=== PATIENT | male | born 1950 | race Caucasian/White ===

== ENCOUNTER 2021-04-23 09:29 | Day surgery (SDC) | payer MEDICARE, OTHER ==
[~2021-04-23 09:29] MED LIST: Albuterol 0.083% 2.5 MG/3 ML Neb Soln NEB SCH; Bupivacaine 0.5% 30 ML SDV ONE; Lidocaine 1% 30 ML SDV ONE; Lidocaine 1%/Sod Bicarbonate in NS 8.4% 1 ML Syringe IDERM PRN; Sodium Chloride 0.9% 10 ML Syringe FLUSH PRN
[2021-04-23] MEDS: Lactated Ringers 1,000 ML IV SCH ×2 (09:45→11:14)
[2021-04-23] MEDS ORDERED: ceFAZolin 2 GM in Premix Bag 1 BAG IV ONE (10:15)
[2021-04-23] MEDS ORDERED: Lidocaine 1% with EPINEPHrine 1:100,000 10 ML MDV ONE ×2 (10:27→10:35)
[2021-04-23] MEDS ORDERED: Bupivacaine 0.5% 30 ML SDV ONE (10:28)
--- NOTE | 2021-04-23 10:28 | PCM.PREANE ---
Preanesthetic Assessment - Procedure Proposed Procedure: Open Right Inguinal Hernia Repair with Mesh - Anesthesia/Transfusion/Family Hx Anesthesia History: No Prior Anesthesia Family History of Anesthesia Reaction: No Transfusion History: No Prior Transfusion(s) Intubation History: Unknown - Review of Systems General: No Symptoms Pulmonary: No Symptoms (COPD: smokes 1/2-3/4 ppd times 40 years./history of pulmonary nodules/orthopnea), Wheezing, Cough, Sputum (faint yellow) Cardiovascular: No Symptoms (never used nitroglycerin), Dyspnea on Exertion (walking one block) Gastrointestinal: No Symptoms (GERD: gall bladder disease.) Neurological: No Symptoms, Tingling (bilateral feet) Other: Reports: Easy Bruising, Sinus Problem (seasonal allergies), Neck Pain (history of neck masss), Anxiety (Per patient "enormous amount") - Physical Assessment NPO Status Date: 04/22/21 NPO Status Time: 20:00 Vital Signs: Last Vital Signs Temp 36.6 C 04/23/21 09:30 Pulse 128 H 04/23/21 09:30 Resp 16 04/23/21 09:30 BP 169/100 H 04/23/21 09:30 Pulse Ox 97 04/23/21 09:30 HR: 113. Height: 1.68 m Weight: 78.8 kg ASA Class: 3 Mental Status: Alert & Oriented x3 Airway Class: Mallampati = 2 Dentition: Reports: Normal Dentition, Missing Tooth/Teeth, Caries Thyro-Mental Finger Breadths: 3 Mouth Opening Finger Breadths: 3 ROM/Head Extension: Full Lungs: Clear to Auscultation, Decreased Breath Sounds, Wheezing (few scattered expiratory wheezes noted. )Xopenex nebulizer given.) Cardiovascular: Regular Rate, Regular Rhythm, No Murmurs - Lab Values: All labs reviewed and noted and within acceptable ranges to proceed with procedure. - Imaging/EKG Impressions: 04/23/2021: EKG: ST [id number], consider Right Ventricular hypertrophy. (patient very nervous) Chest CT: bilateral emphysematous changes/ 7mm nodule right upper lobe, perihilar area(resolved)/ 4mm nodule along right and minor fissures PFT's: Moderate/Severe obstruction FEV1= 53-59% with improvements noted with bronchodilators - Allergies Allergies/Adverse Reactions: Allergies Allergy/AdvReac Type Severity Reaction Status Date / Time No Known Allergies Allergy Verified 04/23/21 10:02 - Anesthesia Plan Pre-Op Medication Ordered: None - Acknowledgements Anesthesia Type Planned: MAC (Local/Mac) Pt an Appropriate Candidate for the Planned Anesthesia: Yes Alternatives and Risks of Anesthesia Discussed w Pt/Guardian: Yes Pt/Guardian Understands and Agrees with Anesthesia Plan: Yes PreAnesthesia Questionnaire HEENT History: Reports: Impaired Vision, Other (See Below) Other HEENT History: glasses Cardiovascular History: Reports: None Respiratory History: Reports: COPD, SOB Gastrointestinal History: Reports: None Genitourinary History: Reports: None [employer] History: Reports: None Musculoskeletal History: Reports: None Neurological History: Reports: None Psychiatric History: Reports: None Endocrine/Metabolic History: Reports: None Hematologic History: Reports: None Immunologic History: Reports: None Oncologic (Cancer) History: Reports: None Dermatologic History: Reports: None - Infectious Disease History Infectious Disease History: Reports: MRSA - Past Surgical History Head Surgeries/Procedures: Reports: None Cardiovascular Surgical History: Reports: None Respiratory Surgical History: Reports: None GI Surgical History: Reports: Cholecystectomy Female Surgical History: Reports: None Male Surgical History: Reports: None Endocrine Surgical History: Reports: None Neurological Surgical History: Reports: None Musculoskeletal Surgical History: Reports: None Oncologic Surgical History: Reports: None Dermatological Surgical History: Reports: None - SUBSTANCE USE Tobacco Use Status *Q: Current Every Day Tobacco User Recreational Drug Use History: No - HOME MEDS Home Medications: Home Meds Albuterol Sulfate [Albuterol Sulfate Hfa] 1 - 2 puff INH Q4H PRN 04/22/21 [History] Albuterol [Proventil Neb Soln] 1 dose NEB Q4H PRN 04/22/21 [History] Budesonide/Formoterol Fumarate [Symbicort 160-4.5 Mcg Inhaler] 2 puff INH BID 04/22/21 [History] Ibuprofen 200 - 600 mg PO Q6H PRN 04/22/21 [History] Loratadine [Claritin] 10 mg PO BID PRN 04/22/21 [History] Nitroglycerin [Nitrostat] 0.3 mg PO ASDIRECTED PRN 04/22/21 [History] Varenicline Tartrate 0.5 mg PO ASDIRECTED 04/22/21 [History] guaiFENesin [Mucinex] 600 mg PO DAILY 04/22/21 [History] Budesonide/Formoterol Fumarate [Symbicort 160-4.5 Mcg Inhaler] 2 puff INH DAILY 04/23/21 [History] - CURRENT (IN HOUSE) MEDS Current Meds: Current Medications Albuterol (Albuterol 0.083% 2.5 Mg/3 Ml Neb Soln) 2.5 mg NEB ONETIME DESEAN Stop: 04/23/21 18:00 Lactated Ringer's (Ringers, Lactated) 1,000 mls @ 125 mls/hr IV ASDIRECTED DESEAN Stop: 04/23/21 23:00 Last Admin: 04/23/21 09:45 Dose: 125 mls/hr Documented by: Vancomycin HCl 1 gm/ Sodium (Chloride) 250 mls @ 250 mls/hr IV ONETIME ONE Stop: 04/23/21 11:14 Cefazolin Sodium/Dextrose 2 gm (/ Premix) 50 mls @ 100 mls/hr IV ONETIME ONE Stop: 04/23/21 10:44 Lidocaine/Sodium Bicarbonate (Lidocaine 1%/Sod Bicarbonate In Ns 8.4% 1 Ml Syringe) 0.25 ml IDERM ONETIME PRN PRN Reason: Prior to IV Start Stop: 04/23/21 18:00 Sodium Chloride (Sodium Chloride 0.9% 10 Ml Syringe) 10 ml FLUSH ASDIRECTED PRN PRN Reason: Keep Vein Open Stop: 04/23/21 18:00 Discontinued Medications Bupivacaine HCl (Bupivacaine 0.5% 30 Ml Sdv) Confirm Administered Dose 30 ml .ROUTE .STK-MED ONE Stop: 04/23/21 07:16 Lidocaine HCl (Lidocaine 1% 30 Ml Sdv) Confirm Administered Dose 30 ml .ROUTE .STK-MED ONE Stop: 04/23/21 07:16
[2021-04-23] MEDS ORDERED: fentaNYL 250 MCG/5 ML SDV ONE (10:33)
[2021-04-23] MEDS ORDERED: Midazolam 1 MG/ML 2 ML SDV ONE (10:33)
[2021-04-23] MEDS ORDERED: Propofol 200 MG/20 ML SDV ONE ×3 (10:33→12:46)
[2021-04-23] MEDS ORDERED: Lidocaine 1% 4 ML ONE (10:35)
[2021-04-23] MEDS ORDERED: Levalbuterol HCl 1.25 MG/3 ML Neb NEB ONE (10:51)
[2021-04-23] MEDS ORDERED: HYDROmorphone 0.5 MG/0.5 ML Syringe IVPUSH PRN (11:23)
[2021-04-23] MEDS ORDERED: Ondansetron 4 MG/2 ML SDV IVPUSH PRN (11:23)
[2021-04-23] MEDS ORDERED: fentaNYL 100 MCG/2 ML SDV IVPUSH PRN (11:23)
[2021-04-23] MEDS ORDERED: Ketamine 500 mg/10 ML MDV ONE (11:55)
[2021-04-23] MEDS ORDERED: Ondansetron 4 MG/2 ML SDV ONE (12:01)
[2021-04-23] MEDS ORDERED: Ketorolac 30 MG/ML SDV ONE (12:01)
--- NOTE | 2021-04-23 13:07 | PCM.OPNOTE ---
- General Post-Op/Procedure Note Date of Surgery/Procedure: 04/23/21 Operative Procedure(s): open right inguinal hernia repair with mesh Findings: right cord lipoma Pre Op Diagnosis: right inguinal hernia Post-Op Diagnosis: right cord lipoma Anesthesia Technique: Local, MAC Primary Surgeon: Philly Meredith Anesthesia Provider: Tanya Ohara Pathology: none Fluid Replacement, Intraop: 900 Output, Urine Amount: 0 EBL in mLs: 5 Complications: none apparent Condition: Good
--- NOTE | 2021-04-23 13:10 | PCM.PRNOTE ---
- Free Text/Narrative Note: Operative Report Date of surgery: April 23, 2021 Preoperative diagnosis: Right inguinal hernia Postoperative diagnosis: Right cord lipoma Procedure: Open right inguinal hernia repair with mesh Surgeon: Dr. Philly Meredith Anesthesia: MAC and local Software Tester: Tanya Ohara CRNA Estimated blood loss: 5 mL IV fluids: 700 mL Urine output: 0 mL Drains and lines: None Findings: Right cord lipoma Pathology: None Indication for the procedure: The patient is a 70-year-old gentleman who presented to the outpatient clinic with a symptomatic right inguinal hernia. He has significant comorbidity of COPD, and we discussed an open inguinal hernia repair with mesh. We discussed risk of recurrence due to possible coughing and risk factor of severe COPD. We also discussed risks of infection and bleeding as well as chronic pain. His written consent was obtained. Description of the procedure: The patient was brought in the operating room and placed on the table in supine position. Preoperative antibiotics were administered per SCIP guidelines. After the MAC anesthesia was administered, the right groin and abdomen were prepped and draped in the usual sterile fashion. An ilioinguinal nerve block was then administered on the right side with mixed 1% lidocaine with epinephrine and 0.5% bupivacaine. The skin was then anesthetized with the same local mixture. An oblique incision was done in the right groin and deepened through the subcutaneous tissue. Fany's fascia was divided. Good exposure of the fascia of external oblique muscle was obtained. The fascia was opened with the scalpel, and then divided with Angelika scissors through the external ring. The inguinal canal was entered. The inguinal contents were from the floor of the inguinal canal and the contents were investigated. A cord lipoma was noted protruding from the inguinal ring. No additional hernia was noted. The inguinal canal was reinforced with a BARD mesh. The mesh was secured in place with interrupted 0 Vicryl suture at the pubic tubercle, and along the rectus abominis fascia and conjoint tendon. The mesh was then tucked superiorly under the external oblique fascia. The fascia of the external oblique muscle was closed on top of the mesh with continuous running 3-0 Vicryl. The wound was irrigated. Fany's fascia was re- approximated with interrupted 2-0 Vicryl sutures. The wound was closed with interrupted 3-0 Vicryl deep dermal sutures and overlying continuous running 4-0 Monocryl subcuticular closure for the skin. Dermabond was applied. The patient tolerated the procedure well and left the operating room in stable condition. No immediate complications were noted. Philly Meredith MD General Surgery
[2021-04-23] MEDS ORDERED: Lactated Ringers 1,000 ML ONE (13:20)
--- NOTE | 2021-04-23 13:38 | PCM.POSTAN ---
POST ANESTHESIA ASSESSMENT - MENTAL STATUS Mental Status: Alert - VITAL SIGNS Vital Signs: Last Vital Signs 1321 146/88 97- 2 L 99 13 Temp 36.6 C 04/23/21 09:30 Pulse 128 H 04/23/21 09:30 Resp 16 04/23/21 09:30 BP 169/100 H 04/23/21 09:30 Pulse Ox 97 04/23/21 09:30 - RESPIRATORY Respiratory Status: Respiratory Rate WNL, Airway Patent, O2 Saturation Stable, Supplemental Oxygen - CARDIOVASCULAR CV Status: Pulse Rate WNL, Blood Pressure Stable - GASTROINTESTINAL GI Status: No Symptoms - PAIN Pain Score: 0 - POST OP HYDRATION Hydration Status: Adequate & Stable
--- NOTE | 2021-04-25 07:11 | PCM.EKG ---
#1 Interpretation EKG Date: 04/23/21 Time: 09:45 Rhythm: Other (sinus tachhycardia) Rate (Beats/Min): 122 [place]: RAD-Right [place] Deviation (106 degrees) P-Wave: Enlarged (bi-atrial hypertrophy) ST-T: Other (delayed R wave transition.) QT: Normal EKG Interpretation Comments: abnormal ECG
== END 2021-04-23 14:25 | disposition home or self-care (01) ==
LOC: JD.SDS 09:29
PROVIDERS: ATTEND Surgery
DX: K40.90 Unilateral inguinal hernia, without obstruction or gangrene, not specified as recurrent (principal); D17.6 Benign lipomatous neoplasm of spermatic cord; J44.9 Chronic obstructive pulmonary disease, unspecified; F17.210 Nicotine dependence, cigarettes, uncomplicated; Z79.899 Other long term (current) drug therapy; Z88.8 Allergy status to other drugs, medicaments and biological substances
CPT/HCPCS: 49505; C1781; J1885; J2250; J2405; J2704; J3010; J3370; J3490; J7050; J7120; J7612; 00830

== ENCOUNTER 2021-07-06 13:40 | Emergency (ER) | payer MEDICARE, OTHER ==
[2021-07-06] MEDS ORDERED: Sodium Chloride 0.9% 10 ML Syringe FLUSH PRN (15:08)
[2021-07-06] MEDS ORDERED: methylPREDNISolone Sodium Succinate 125 MG/2 ML SDV IVPUSH PRN (15:08)
[2021-07-06] MEDS ORDERED: diphenhydrAMINE 50 MG/ML SDV IVPUSH PRN (15:08)
[2021-07-06] MEDS ORDERED: Famotidine 20 MG/2 ML SDV IVPUSH PRN (15:08)
[2021-07-06] MEDS ORDERED: EPINEPHrine 1 MG/ML SDV IM PRN (15:08)
[2021-07-06 15:48] LABS: CORONAVIRUS COVID-19 NAA POSITIVE (NEGATIVE)
[2021-07-06] MEDS: Sodium Chloride 0.9% 10 ML Syringe FLUSH SCH ×2 (15:56→15:58)
== END 2021-07-06 15:30 | disposition home or self-care (01) ==
LOC: JD.ED 13:40
DX: U07.1 COVID-19 (principal); J44.9 Chronic obstructive pulmonary disease, unspecified; F17.200 Nicotine dependence, unspecified, uncomplicated; Z88.8 Allergy status to other drugs, medicaments and biological substances
CPT/HCPCS: 0240U; 36415; 71045; 80053; 83615; 83735; 83880; 84484; 85025; 86140; 93005; 99284; M0243; Q0243; 93010; 99285